=== PATIENT | male | born 1985 | race American Indian/Alaskan Native ===

== ENCOUNTER 2017-07-25 19:27 | Emergency (ER) | payer BC, OTHER ==
[2017-07-25 19:35] VITALS: BMI 26.6
[2017-07-25 19:37] VITALS: BP 124/84; RESP 18; TEMP 98.5
[2017-07-25 19:40] VITALS: PULSE 68; O2SAT 99
--- NOTE | 2017-07-25 19:57 | ED PDOC ---
Arrival/HPI - General Chief Complaint: GI Problem Time Seen by Provider: 07/25/17 19:43 Historian: Patient - History of Present Illness Narrative History of Present Illness (Text): 07/25/17 19:57 A 31 year old male presents to the emergency department complaining of a lump to rectal area noted today. Patient notes mild discomfort to area. Patient denies any fever, chills, nausea, vomiting, diarrhea, pain with defecation, abdominal pain, chest pain, shortness of breath or any other complaints. Time/Duration: Other (today) Symptom Course: Unchanged Quality: Other Context: Home Past Medical History - Provider Review Nursing Documentation Reviewed: Yes - Past History Past History: No Previous - Infectious Disease Hx of Infectious Diseases: None - Tetanus Immunization Tetanus Immunization: Unknown - Past Medical History Past Medical History: No Previous - Cardiac Hx Cardiac Disorders: No - Pulmonary Hx Respiratory Disorders: No - Neurological Hx Neurological Disorder: No - HEENT Hx HEENT Disorder: No - Renal Hx Renal Disorder: No - Endocrine/Metabolic Hx Endocrine Disorders: No - Hematological/Oncological Hx Blood Disorders: No - Integumentary Hx Dermatological Disorder: No - Musculoskeletal/Rheumatological Hx Musculoskeletal Disorders: No - Gastrointestinal Hx Hemorrhoids: Yes - Genitourinary/Gynecological Hx Genitourinary Disorders: No - Psychiatric Hx Psychophysiologic Disorder: No Hx Substance Use: No Other/Comment: OCD - Anesthesia Hx Anesthesia: No Family/Social History - Physician Review Nursing Documentation Reviewed: Yes Family/Social History: No Known Family HX Smoking Status: Never Smoked Hx Alcohol Use: Yes Hx Substance Use: No Allergies/Home Meds Allergies/Adverse Reactions: Allergies black dye Allergy (Uncoded 07/25/17 19:35) RASH Review of Systems - Physician Review All systems were reviewed & negative as marked: Yes - Review of Systems Constitutional: absent: Fevers, Night Sweats Respiratory: absent: SOB Cardiovascular: absent: Chest Pain Gastrointestinal: Other (lump in rectal area with mild discomfort). absent: Abdominal Pain, Nausea, Vomiting Physical Exam Vital Signs Reviewed: Yes Vital Signs Temp Pulse Resp BP Pulse Ox 07/25/17 19:37 98.5 F 68 18 124/84 99 07/25/17 19:36 98.5 F 65 18 124/84 100 Temperature: Afebrile Blood Pressure: Normal Pulse: Regular Respiratory Rate: Normal Appearance: Positive for: Well-Appearing, Non-Toxic, Comfortable Pain Distress: None Mental Status: Positive for: Alert and Oriented X 3 - Systems Exam Head: Present: Atraumatic, Normocephalic Pupils: Present: PERRL Extroacular Muscles: Present: EOMI Conjunctiva: Present: Normal Mouth: Present: Moist Mucous Membranes Neck: Present: Normal Range of Motion Respiratory/Chest: Present: Clear to Auscultation, Good Air Exchange. No: Respiratory Distress, Accessory Muscle Use Cardiovascular: Present: Regular Rate and Rhythm, Normal S1, S2. No: Murmurs Abdomen: Present: Normal Bowel Sounds. No: Tenderness, Distention, Peritoneal Signs Rectal: Present: Hemorrhoids (non thrombosed external hemorrhoids present), Normal Rectal Tone. No: Occult Blood, Rectal Tenderness, Gross Blood Back: Present: Normal Inspection Upper Extremity: Present: Normal Inspection. No: Cyanosis, Edema Lower Extremity: Present: Normal Inspection. No: Edema Neurological: Present: GCS=15, CN II-XII Intact, Speech Normal Skin: Present: Warm, Dry, Normal Color. No: Rashes Psychiatric: Present: Alert, Oriented x 3, Normal Insight, Normal Concentration Medical Decision Making ED Course and Treatment: 07/25/17 19:57 Impression: A 31 year old male with external hemorrhoids Progress Notes: I have discussed the plan with the patient, who expresses understanding. Patient in agreement with plan to be discharged home. Patient is stable for discharge. Patient was instructed to follow up with physician or return if symptoms worsen or new concerning symptoms arise. Disposition/Present on Arrival - Present on Arrival Any Indicators Present on Arrival: No History of DVT/PE: No History of Uncontrolled Diabetes: No Urinary Catheter: No History of Decub. Ulcer: No History Surgical Site Infection Following: None - Disposition Have Diagnosis and Disposition been Completed?: Yes Diagnosis: External hemorrhoid Disposition: HOME/ ROUTINE Disposition Time: 20:05 Patient Plan: Discharge Condition: GOOD Discharge Instructions (ExitCare): Hemorrhoids (DC) Additional Instructions: Use medication as prescribed/drink plenty of liquids/Increase fiber in your diet /Advil as directed/follow up with your doctor as needed Prescriptions: Hydrocortisone 2.5% (Rectal) [Anusol-HC] 30 applic SD BID PRN #1 tube PRN Reason: Hemorrhoids Referrals: Ford Colon MD [Primary Care Provider] - Follow up with primary Forms: [email or web address] ([place])
== END 2017-07-25 20:17 | disposition home or self-care (01) ==
LOC: ED 19:27
DX: K64.4 Residual hemorrhoidal skin tags (principal)